=== PATIENT | female | born 2000 | race Native Hawaiian/Other Pacific Islander ===

== ENCOUNTER 2023-03-13 21:26 | Emergency (ER) | payer MEDICAID, SELFPAY ==
[2023-03-13 21:28] VITALS: BP 110/70; PULSE 76; RESP 16; TEMP 36.3; O2SAT 100; BMI 25.6
--- NOTE | 2023-03-13 21:57 | ED.GENADULT ---
HPI - General Adult General Date Seen: 03/13/23 Chief complaint: Allergic Reaction Stated complaint: allergic reaction, itchy Time Seen by Provider: 03/13/23 21:37 Source: patient Mode of arrival: ambulatory Limitations: no limitations History of Present Illness HPI narrative: The patient is a 22-year-old young woman, generally healthy, who presents for evaluation of itching. For the past several days she had had some upper respiratory symptoms including sore throat and congestion. She still is a little bit of a sore throat although it has improved. Yesterday she started having problems with itching all over her body. She tried Benadryl yesterday once in today once and does not feel that it has been very helpful. She does not have any swelling, wheezing, or other breathing difficulties. She denies any new medications or products. She does have sort of a diffuse redness to her skin on her arms and legs. She thinks she may have had a fever based on feeling hot earlier but she has not checked her temperature. Related Data Home Medications Medication Instructions Recorded Confirmed No Known Home Medications 03/13/23 03/13/23 Allergies Allergy/AdvReac Type Severity Reaction Status Date / Time No Known Drug Allergies Allergy Verified 03/13/23 21:34 Review of Systems Status of ROS: Reports: 6 or more systems reviewed and unremarkable except as noted in History and below Exam Narrative: Exam Narrative: Vital signs as noted above. In general, an alert, well-appearing patient. Breathing easily. Head: Normocephalic, atraumatic. Eyes: Pupils are equal reactive. Extraocular movements are full. Conjunctivae are normal. No icterus. ENT: Mucous membranes are moist. Tonsils are mildly erythematous but no exudate or edema. Airway patent. Neck: Supple without lymphadenopathy. No stridor. Heart: Regular rate and rhythm. No murmur or rub. Lungs: Clear bilaterally. No increased work of breathing, crackles or wheezes. Abdomen: Soft and nontender. No organomegaly. Extremities: Well perfused. No edema. No calf tenderness. Pulses intact. Neurologic: Patient is alert and oriented to person and place. Speech is fluent. Face is symmetric. Moves all extremities equally. Affect: Normal. Skin: Warm and dry. Well perfused. She has a diffuse small areas of blotchiness particularly on her legs, less so on her arms. I do not see anything that looks like hives, there are no blisters or petechiae/purpura. Palms and soles are spared. No intraoral lesions. Const: Vital Signs, click to edit/add: Vital Signs - 24 hr 03/13/23 21:28 Temperature 97.4 F L Pulse Rate [Pulse Oximeter] 76 Respiratory Rate 16 Blood Pressure [Ri ght Upper Arm] 110/70 Pulse Oximetry 100 Oxygen Delivery Me thod Room Air Documenting provider has reviewed patient's vital signs: yes Course Course ED Course: Overall her skin exam is nonspecific. Given other symptoms I suspect that this is all going to be viral and will resolve with time. I did recommend that we put her on a short course of prednisone and switch her to Zyrtec to see if we can get relief of her itchiness. For worsening or significant changes in the rash, if she develops blisters, petechiae or purpura etcetera she should be seen again. Otherwise, follow up with primary care if not gradually improving over the next few days with treatment. Vital Signs Vital signs: Initial Vital Signs Temperature 97.4 F L 03/13/23 21:28 Temperature Source Temporal Artery Scan 03/13/23 21:28 Pulse Rate 76 03/13/23 21:28 Respiratory Rate 16 03/13/23 21:28 Blood Pressure 110/70 03/13/23 21:28 Blood Pressure Mean 83 03/13/23 21:28 Pulse Oximetry 100 03/13/23 21:28 Oxygen Delivery Method Room Air 03/13/23 21:28 Vital Signs Temperature 97.4 F L 03/13/23 21:28 Pulse Rate 76 03/13/23 21:28 Respiratory Rate 16 03/13/23 21:28 Blood Pressure 110/70 03/13/23 21:28 Pulse Oximetry 100 03/13/23 21:28 Oxygen Delivery Method Room Air 03/13/23 21:28 Temperature 97.4 F L 03/13/23 21:28 Pulse Rate 76 03/13/23 21:28 Respiratory Rate 16 03/13/23 21:28 Blood Pressure 110/70 03/13/23 21:28 Pulse Oximetry 100 03/13/23 21:28 Oxygen Delivery Method Room Air 03/13/23 21:28 Medications Administered Medications: Discontinued Medications Generic Name Dose Route Start Last Admin Trade Name Freq PRN Reason Stop Dose Admin Cetirizine HCl 10 mg 03/13/23 21:54 03/13/23 22:09 Cetirizine Hcl 10 Mg Tablet PO 03/13/23 21:55 10 mg ONCE ONE Administration Prednisone 60 mg 03/13/23 21:53 03/13/23 22:09 Prednisone 20 Mg Tablet PO 03/13/23 21:54 60 mg ONCE ONE Administration Discharge Plan Discharge Clinical Impression: Itching Patient Disposition: Home, Self-Care Condition: Stable Instructions: Itchy Skin (ED) Additional Instructions: I suspect that your symptoms are viral and will resolve over the next couple of days. I would recommend taking Zyrtec 10 mg twice a day, this can be bought [id number], as well as prednisone as prescribed. If you develop any worsening rash, blistering, dark red spots, or other worsening, return to the emergency department for re-evaluation. See her primary doctor if not gradually improving over the next couple of days. Activity Level: No Restrictions Discharge Diet: Regular Prescriptions: No Action No Known Home Medications Follow Up/Referrals: Stefanie Farmer MD [Primary Care Provider] - Stand Alone Forms: [employer] Info Instructions
[2023-03-13] MEDS: CETIRIZINE HCL 10 MG TABLET PO (22:09)
[2023-03-13] MEDS: predniSONE 20 MG TABLET 60 MG PO (22:09)
== END 2023-03-13 22:33 | disposition home or self-care (01) ==
LOC: ED 22:17
PROVIDERS: Emergency Provider Emergency Medicine; PCP Pediatrics
DX: L29.9 Pruritus, unspecified (principal)
CPT/HCPCS: 99283; 99284; A9270; J7512

== ENCOUNTER 2024-11-26 18:40 | Outpatient (CLI) | payer BC, SELFPAY ==
[2024-11-26 22:41] LABS: Chlamydia DNA Amplified* NOT DETECTED (No Detected); GC DNA Amplified* NOT DETECTED (No Detected)
[2024-12-06 11:32] LABS: Pap Test Digital Imaging Done; Pap Test Reviewed by Path Done
== END 2024-11-26 18:41 | disposition home or self-care (01) ==
PROVIDERS: PCP Pediatrics; Visit Provider Physician Assistant
DX: Z12.4 Encounter for screening for malignant neoplasm of cervix (principal); N89.8 Other specified noninflammatory disorders of vagina
CPT/HCPCS: 87491; 87591; 87624; 87625; 88141; 88142; 88175

== ENCOUNTER 2024-12-14 08:30 | Outpatient (CLI) | payer BC, SELFPAY | END 2024-12-14 08:31 | disposition home or self-care (01) | LOC: NFLDREF 12-17 18:02 | PROVIDERS: PCP Pediatrics; Referring Provider Pediatrics; Visit Provider Physician Assistant | DX: Z13.9 Encounter for screening, unspecified (principal) | CPT/HCPCS: 80061 ==